=== PATIENT | female | born 1935 ===

== ENCOUNTER 2017-10-06 16:35 | Emergency (ER) | payer MEDICARE ==
[2017-10-06] MEDS ORDERED: Diltiazem IV* 5 MG/ML 5 ML VIAL (for loading dose/IV Push) (25 MG) IV SLOW PU ONE (16:49)
[2017-10-06] MEDS ORDERED: Metoprolol Tartrate IV* 1 MG/ML 5 ML VIAL IV ONE (16:56)
--- NOTE | 2017-10-06 17:17 | ED ---
HPI Cardiac - History of Current Complaint Stated Complaint: SOB/BP/CHEST PRESSURE Time Seen by Provider: 10/06/17 16:48 Hx Obtained From: Patient Onset/Duration: Started Minutes Ago, Started Hours Ago - beginning this morning Timing: Constant Initial Severity: Moderate Current Severity: Moderate Chest Pain Radiates: No Character: Fluttering Aggravating Factor(s): Exertion Alleviating Factor(s): Nothing Associated Signs and Symptoms: Positive: Negative - Risk Factors Pulmonary Embolism Risk Factors: Negative Cardiac Risk Factors: Hypertension, Diabetes Atrial Fibrillation Risk Factors: Hypertension, Chronic Pulmonary Disease - Allergy/Home Medications Allergies/Adverse Reactions: Allergies Allergy/AdvReac Type Severity Reaction Status Date / Time No Known Allergies Allergy Verified 10/06/17 16:39 PMH/Surg Hx/FS Hx/Imm Hx Previously Healthy: No - diabetes, hypertension Cardiovascular History: Reports: Hx Hypertension Respiratory History: Reports: Hx Chronic Obstructive Pulmonary Disease (COPD) Infectious Disease History: Denies: Traveled Outside the [place] in Last 30 Days Review of Systems Constitutional: Negative Eyes: Negative ENT: Negative Cardiovascular: Other - palpitations dyspnea Positive: Shortness Of Breath Gastrointestinal: Negative Genitourinary: Negative Musculoskeletal: Negative Skin: Negative Neurological: Negative All Other Systems Reviewed And Are Negative: Yes Physical Exam Triage Information Reviewed: Yes Vital Signs Reviewed: Yes Appearance: Positive: Ill-Appearing Skin: Positive: Warm Head/Face: Positive: Normal Head/Face Inspection Eyes: Positive: Normal ENT: Positive: Normal ENT inspection Neck: Positive: Supple Respiratory/Lung Sounds: Positive: Clear to Auscultation Cardiovascular: Positive: Other - rapid ventricular response, irregularly irregular Abdomen Description: Positive: Nontender Bowel Sounds: Positive: Present Musculoskeletal: Positive: Normal Neurological: Positive: Normal Psychiatric: Positive: Normal AVPU Assessment: Alert Disposition - Course Course Of Treatment: rapid afib, iv placed, lopressor given - Differential Dx - Cardiopulmonary Differential Diagnoses - Cardiopulmonary: Atrial Fibrillation - wth rapid ventricular response - Diagnoses Provider Diagnoses: Atrial fibrillation Is Visit Related: No - Physician Notifications Instructed by Provider To: Admit As Inpatient Discharge - Sign-Out/Discharge Documenting (check all that apply): Patient Departure - Discharge Plan Condition: Guarded Disposition: [facility] Referrals: Kesha Zhang [Primary Care Provider] - - Billing Disposition and Condition Condition: GUARDED Disposition: Trans [facility] Care Fac
[2017-10-06] MEDS ORDERED: NS 0.9% 1000 ML* 1,000 ML IV ONE (17:58)
[2017-10-06 18:25] VITALS: BP 142/78
== END 2017-10-06 17:05 | disposition short-term general hospital (02) ==
LOC: UCCORT 16:35
DX: I48.91 Unspecified atrial fibrillation (principal); I45.10 Unspecified right bundle-branch block; R06.02 Shortness of breath; E11.9 Type 2 diabetes mellitus without complications; I10 Essential (primary) hypertension; J44.9 Chronic obstructive pulmonary disease, unspecified
CPT/HCPCS: 93005; 96374; 99213; G0463; J3490